=== PATIENT | female | born 1970 | race Caucasian/White ===

== ENCOUNTER 2017-12-11 08:49 | Outpatient (CLI) | payer OTHER ==
[2017-12-11 17:50] LABS: BASOPHILS % (AUTO) 0.8 %; EOSINOPHILS # (AUTO) 0.2 10^3/uL (0.0-0.7); EOSINOPHILS % (AUTO) 3.8 %; HGB - HEMOGLOBIN 13.7 g/dL (12.0-16.0); LYMPHOCYTES # (AUTO) 1.6 10^3/uL (1.5-3.5); LYMPHOCYTES % (AUTO) 25.1 %; MEAN CORPUSCULAR HEMOGLOBIN 28.9 pg (27.0-31.0); MEAN CORPUSCULAR HGB CONC 32.6 g/dL (32.0-36.0); MEAN CORPUSCULAR VOLUME 88.8 fL (81.0-99.0); MONOCYTES # (AUTO) 0.5 10^3/uL (0.0-1.0); MONOCYTES % (AUTO) 8.7 %; NEUTROPHILS # (AUTO) 3.8 10^3/uL (1.5-6.6); NEUTROPHILS % (AUTO) 61.6 %; PLT - PLATELET COUNT 227 10^3/uL (130-450); RED BLOOD COUNT 4.74 10^6/uL (4.20-5.40); RED CELL DISTRIBUTION WIDTH 13.6 % (12.0-15.0); WHITE BLOOD COUNT 6.2 x10^3/uL (4.8-10.8)
[2017-12-11 18:38] LABS: ALBUMIN/GLOBULIN RATIO 1.1 (1.0-2.2); ALKALINE PHOSPHATASE 56 IU/L (42-121); ALT ALANINE AMINOTRANSFERASE 16 IU/L (10-60); AST ASPARTATE AMINOTRANSFERASE 17 IU/L (10-42); BILIRUBIN,TOTAL 0.7 mg/dL (0.2-1.0); BUN - BLOOD UREA NITROGEN 11 mg/dL (6-20); CALCIUM 8.8 mg/dL (8.5-10.3); CARBON DIOXIDE - CO2 26 mmol/L (21-32); CHLORIDE 105 mmol/L (101-111); CHOL/HDL RATIO 5.3 (<4.4); CHOLESTEROL 226 mg/dL; CREATININE 0.6 mg/dL (0.4-1.0); GFR - MDRD 107 (>89); GLUCOSE 90 mg/dL (70-100); HDL CHOLESTEROL 43 mg/dL; LDL CHOLESTEROL,CALCULATED 154 mg/dL; LDL/HDL RATIO 3.6 (<4.4); SODIUM 137 mmol/L (135-145); TOTAL PROTEIN 7.5 g/dL (6.7-8.2); VLDL CHOLESTEROL 29 mg/dL
[2017-12-11 18:43] LABS: THYROID STIMULATING HORMONE 5.83 uIU/mL (0.34-5.60)
[2017-12-11 19:28] LABS: FREE T4 (FREE THYROXINE) 0.53 ng/dL (0.58-1.64)
== END 2017-12-11 08:50 | disposition home or self-care (01) ==
LOC: LAB.F 08:49
PROVIDERS: ATTEND Physician Assistant Medical
DX: Z00.00 Encounter for general adult medical examination without abnormal findings (principal); Z13.89 Encounter for screening for other disorder
CPT/HCPCS: 36415; 80053; 80061; 82306; 83721; 84439; 84443; 85025

== ENCOUNTER 2018-07-30 08:22 | Outpatient (CLI) | payer OTHER ==
[2018-07-30 09:18] LABS: CHOL/HDL RATIO 4.8 (<4.4); CHOLESTEROL 225 mg/dL; HDL CHOLESTEROL 47 mg/dL; LDL CHOLESTEROL,CALCULATED 149 mg/dL; LDL/HDL RATIO 3.2 (<4.4); VLDL CHOLESTEROL 29 mg/dL
== END 2018-07-30 08:23 | disposition home or self-care (01) ==
LOC: LAB 08:22
PROVIDERS: ATTEND Nurse Practitioner Family
DX: E55.9 Vitamin D deficiency, unspecified (principal); E78.5 Hyperlipidemia, unspecified; E03.9 Hypothyroidism, unspecified
CPT/HCPCS: 36415; 80061; 82306; 83721; 84443

== ENCOUNTER 2018-09-12 14:09 | Outpatient (CLI) | payer OTHER ==
--- NOTE | 2018-09-12 16:35 | Ultrasound Report ---
Reason: LEG PAIN,RIGHT Procedure Date: 09/12/2018 Accession Number: [id number] / [id number] Procedure: US - Ext Limited Non Vascular CPT Code: FULL RESULT: EXAM: RIGHT LOWER EXTREMITY ULTRASOUND - LIMITED EXAM DATE: 09/12/2018 02:29 PM. CLINICAL HISTORY: LEG PAIN,RIGHT. COMPARISON: None. TECHNIQUE: Real-time scanning was performed with static images obtained. Region of interest: Right popliteal fossa. FINDINGS: No focal ultrasound abnormality in the right popliteal fossa. No mass or fluid collection evident. IMPRESSION: No focal ultrasound abnormality in the right popliteal fossa. No mass or fluid collection evident. RADIA
== END 2018-09-12 14:10 | disposition home or self-care (01) ==
LOC: DI 14:09
PROVIDERS: ATTEND Family Medicine
DX: M79.604 Pain in right leg (principal)
CPT/HCPCS: 76882

== ENCOUNTER 2020-10-22 07:00 | Outpatient (CLI) | payer BC, OTHER ==
--- NOTE | 2020-10-25 15:51 | XRAY Report ---
PROCEDURE: Knee 4 View RT INDICATIONS: R KNEE PX TECHNIQUE: 5 views of the right knee and 2 views of the left knee were acquired. COMPARISON: None. FINDINGS: Bones: No acute fractures or dislocations. No suspicious bony lesions. There is severe narrowing o f the right medial femorotibial compartments with small marginal osteophytes and subchondral sclerosi s. Small marginal osteophytes are seen in the lateral and anterior compartments. There is mild narrow ing of the lateral patellofemoral joint space. Mild joint space narrowing is also seen in the contral ateral left medial femorotibial compartment. Soft tissues: No joint effusion. No suspicious soft tissue calcifications. 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 Reviewed by: Oseas Baird MD on 10/25/2020 3:50 PM PST Approved by: Oseas Baird MD on 10/25/2020 3:50 PM PST Station ID: [id number]
== END 2020-10-22 23:59 | disposition home or self-care (01) ==
LOC: DI.N 07:00
PROVIDERS: ATTEND Physician Assistant
DX: M25.561 Pain in right knee (principal); M17.11 Unilateral primary osteoarthritis, right knee

== ENCOUNTER 2021-03-06 13:35 | Outpatient (CLI) | payer BC, OTHER ==
--- NOTE | 2021-03-11 13:20 | Mammography Report ---
BILATERAL DIGITAL SCREENING MAMMOGRAM 3D/2D: 03/06/2021 CLINICAL: Routine screening. Comparison is made to exams dated: 10/24/2011 mammogram and 10/10/2011 mammogram - [facility]. The tissue of both breasts is heterogeneously dense. This may lower the sensitivity of harsha mography. No significant masses, calcifications, or other findings are seen in either breast. There has been no significant interval change. IMPRESSION: NEGATIVE There is no mammographic evidence of malignancy. A 1 year screening mammogram is recommended. This exam was interpreted at Station ID: [id number]. NOTE: For mammograms, a report in lay terms will be sent to the patient. Approximately 15% of breast malignancies will not be visualized mammographically. In the management of a palpable breast mass, a negative mammogram must not discourage biopsy of a clinically suspicious lesion. Electronically Signed By: Lyndsay atkins/[email or web address]:03/08/2021 16:50:33 ACR BI-RADS Category 1: Negative 3341F PARENCHYMAL PATTERN: (D) - The breast(s) demonstrate(s) heterogeneously dense fibroglandular starr parham. BI-RADS CATEGORY: (1) - 1 RECOMMENDATION: (ANNUAL) - Recommend routine annual screening mammography. [id number] 1 year screening LATERALITY: (B)
== END 2021-03-06 13:36 | disposition home or self-care (01) ==
LOC: DI 13:35
PROVIDERS: ATTEND Naturopath
DX: Z12.31 Encounter for screening mammogram for malignant neoplasm of breast (principal)

== ENCOUNTER 2022-08-22 14:08 | Outpatient (CLI) | payer OTHER ==
[2022-08-22 15:02] LABS: THYROID STIMULATING HORMONE 2.52 uIU/mL (0.34-5.60)
[2022-08-22 15:05] LABS: FREE T3 2.55 pg/mL (2.5-3.9)
[2022-08-22 15:06] LABS: FREE T4 (FREE THYROXINE) 0.91 ng/dL (0.58-1.64)
[2022-08-24 05:07] LABS: THYROGLOBULIN ANTIBODY 1.1 IU/mL (0.0-0.9); THYROID PEROXIDASE (TPO) AB <9 IU/mL (0-34)
== END 2022-08-22 14:09 | disposition home or self-care (01) ==
LOC: LAB 14:08
PROVIDERS: ATTEND Naturopath
DX: E03.9 Hypothyroidism, unspecified (principal); Z13.29 Encounter for screening for other suspected endocrine disorder
CPT/HCPCS: 36415; 84439; 84443; 84481; 84482; 86376; 86800

== ENCOUNTER 2023-01-14 15:56 | Outpatient (CLI) | payer BC | END 2023-01-14 15:57 | disposition home or self-care (01) | LOC: LAB 15:56 | PROVIDERS: ATTEND Naturopath | DX: E78.2 Mixed hyperlipidemia (principal); R79.82 Elevated C-reactive protein (CRP); E66.9 Obesity, unspecified; R60.0 Localized edema; E03.9 Hypothyroidism, unspecified | CPT/HCPCS: 36415; 82306; 86141 ==

== ENCOUNTER 2023-02-07 13:54 | Outpatient (CLI) | payer BC ==
[2023-02-07 15:02] LABS: THYROID STIMULATING HORMONE 2.89 uIU/mL (0.34-5.60)
[2023-02-07 15:03] LABS: FREE T3 2.57 pg/mL (2.5-3.9)
[2023-02-07 15:04] LABS: FREE T4 (FREE THYROXINE) 0.83 ng/dL (0.58-1.64)
[2023-02-10 16:08] LABS: THYROGLOBULIN ANTIBODY <1.0 IU/mL (0.0-0.9); THYROID PEROXIDASE (TPO) AB <9 IU/mL (0-34)
== END 2023-02-07 13:55 | disposition home or self-care (01) ==
LOC: LAB 13:54
PROVIDERS: ATTEND Naturopath
DX: E03.9 Hypothyroidism, unspecified (principal)
CPT/HCPCS: 36415; 84439; 84443; 84481; 84482; 86376; 86800